=== PATIENT | male | born 1945 ===

== ENCOUNTER 2022-11-01 06:19 | Emergency (ER) | payer OTHER ==
[~2022-11-01] VITALS: Ht 165.1 cm; Wt 74.8 kg
[~2022-11-01 06:19] MED LIST: AMOX1TAB12 PO; COZAAR100 MG
[2022-11-01] MEDS ORDERED: GLIMEPIRIDE1 M1 PO (06:24)
[2022-11-01] MEDS ORDERED: LEVOTHYROXINE25 MCG PO (06:24)
== END 2022-11-01 11:26 | disposition home or self-care (01) ==
LOC: ER 06:19
DX: E11.649 Type 2 diabetes mellitus with hypoglycemia without coma (principal); Z79.84 Long term (current) use of oral hypoglycemic drugs; D69.6 Thrombocytopenia, unspecified